=== PATIENT | female | born 1960 | race Two or more races ===

== ENCOUNTER 2022-07-12 17:20 | Inpatient (IN) | payer MEDICARE, BC ==
[~2022-07-12] VITALS: Ht 165.1 cm; Wt 54.4 kg
[2022-07-12] MEDS ORDERED: LORAZEPAM 2 MG/1 ML VIAL IV ONE (18:00)
[2022-07-12] MEDS ORDERED: LORAZEPAM 2 MG/1 ML VIAL ONE (18:04)
[2022-07-12 18:41] LABS: HEMATOCRIT 28.2 % (31.2-41.9); MEAN CORPUSCULAR HEMOGLOBIN 29.4 uug (24.7-32.8); PLATELET COUNT (AUTO) 414 K/uL (179-408)
[2022-07-12] MEDS ORDERED: diphenhydrAMINE 50 MG/1 ML VIAL IV ONE (18:45)
[2022-07-12 18:52] LABS: CARBON DIOXIDE 29 mmol/L (21-32); CHLORIDE 107 mmol/L (98-107); GLUCOSE 87 mg/dL (74-106); POTASSIUM 3.9 mmol/L (3.5-5.1); UREA NITROGEN, BLOOD 13 mg/dL (7-18)
[2022-07-12] MEDS ORDERED: diphenhydrAMINE 50 MG/1 ML VIAL ONE (18:53)
[2022-07-12] MEDS ORDERED: LISI20TA30 PO (18:54)
[2022-07-12] MEDS ORDERED: DULO60CA45 PO (18:54)
[2022-07-12] MEDS ORDERED: FAMO-132 PO (18:54)
[2022-07-12] MEDS ORDERED: TRAM50TA2 PO (18:54)
[2022-07-12] MEDS ORDERED: TRAZ-182 PO (18:54)
[2022-07-12] MEDS ORDERED: MONT10TA22 PO (18:54)
[2022-07-12] MEDS ORDERED: BACL10TA PO (18:54)
[2022-07-12] MEDS ORDERED: IRON15TA3 PO (18:54)
[2022-07-12] MEDS ORDERED: GABA-532 PO (18:54)
[2022-07-12] MEDS ORDERED: LEVO50TA PO (18:54)
[2022-07-12] MEDS ORDERED: NIFE-35 PO (18:54)
[2022-07-12] MEDS ORDERED: ASPI81TA31 PO (18:54)
[2022-07-12] MEDS ORDERED: PANT40TA49 PO (18:54)
[2022-07-12 19:00] LABS: ALANINE AMINOTRANSFERASE 22 U/L (14-59); ALKALINE PHOSPHATASE 84 U/L (50-136); ASPARTATE AMINOTRANSFERASE 22 U/L (15-37); BILIRUBIN,DIRECT 0.1 mg/dL (0.0-0.2); BILIRUBIN,TOTAL 0.3 mg/dL (0.2-1.0)
[2022-07-12 19:10] LABS: ETHANOL < 3 MG/DL (0-0)
--- NOTE | 2022-07-12 19:11 | NUR ---
Patient is still for urine & COVID specimens with possible admission. No arm or body tremors seen while patient is resting on gurney with her eyes close, MD and incoming nurse notified.
--- NOTE | 2022-07-12 19:13 | NUR ---
SEEMA from Gina HERRING
--- NOTE | 2022-07-12 20:48 | NUR ---
Per [facility] Manager Migue HERRING, no beds available at the moment. Patient will stay in the ER until a TELE bed is available.
--- NOTE | 2022-07-12 20:48 | NUR ---
Called Telephone Repairer Migue HERRING for bed
[2022-07-12] MEDS ORDERED: MAGNESIUM HYDROXIDE 30 ML LIQUID UDC PO PRN (23:00)
[2022-07-12] MEDS ORDERED: LORAZEPAM 1 MG TABLET PO PRN (23:00)
[2022-07-12] MEDS ORDERED: ONDANSETRON 4 MG/2 ML VIAL IV PRN (23:00)
[2022-07-12] MEDS ORDERED: ACETAMINOPHEN 325 MG TABLET PO PRN (23:00)
[2022-07-12] MEDS ORDERED: REMEDY ESSENTIAL ZINC PASTE 113 GM TP PRN (23:00)
[2022-07-12] MEDS ORDERED: LORAZEPAM 2 MG/1 ML VIAL IV PRN (23:00)
[2022-07-12] MEDS ORDERED: ENOXAPARIN SODIUM 40 MG/0.4 ML DISP.SYRIN SQ SCH (23:00)
[2022-07-12] MEDS ORDERED: ENOXAPARIN SODIUM 40 MG/0.4 ML DISP.SYRIN SQ ONE (23:06)
[2022-07-13 01:13] LABS: *AMPHETAMINE, URINE NEGATIVE (NEGATIVE); *CANNABINOID, URINE NEGATIVE (NEGATIVE); *COCCAINE, URINE NEGATIVE (NEGATIVE); *PHENCYCLIDINE SCREEN,URINE NEGATIVE (NEGATIVE)
--- NOTE | 2022-07-13 03:00 | NUR ---
Patient able to walk to the restroom with assistance
[2022-07-13] MEDS ORDERED: LORAZEPAM 2 MG/1 ML VIAL ONE (04:50)
--- NOTE | 2022-07-13 06:40 | NUR ---
Patient assigned to room 310. Patient will be transfered to TELE after change of shift
--- NOTE | 2022-07-13 07:03 | NUR ---
Endorsed to Benita HERRING
[2022-07-13 08:33] VITALS: BP 139/77
--- NOTE | 2022-07-13 08:50 | NUR ---
Transfer pt to Tele bed 310.
[2022-07-13] MEDS ORDERED: TRAZ-257 PO (08:58)
[2022-07-13] MEDS ORDERED: PANTOPRAZOLE SODIUM 40 MG VIAL IV SCH (09:00)
[2022-07-13] MEDS ORDERED: ASPIRIN 81 MG TAB.CHEW PO SCH (09:00)
[2022-07-13] MEDS ORDERED: FOLIC ACID 1 MG TABLET PO SCH (09:00)
[2022-07-13] MEDS ORDERED: THIAMINE HCL 100 MG TABLET PO SCH (09:00)
[2022-07-13] MEDS ORDERED: MONTELUKAST SODIUM 10 MG TABLET PO SCH (09:30)
[2022-07-13] MEDS ORDERED: LISINOPRIL 20 MG TABLET PO SCH (09:30)
[2022-07-13] MEDS ORDERED: DULOXETINE 60 MG CAPSULE.DR PO SCH (09:30)
[2022-07-13] MEDS ORDERED: LEVOTHYROXINE SODIUM 50 MCG TABLET PO SCH (09:30)
[2022-07-13] MEDS ORDERED: NIFEdipine XL 30 MG TABSR PO SCH (09:30)
[2022-07-13 09:41] LABS: HEMATOCRIT 31.3 % (31.2-41.9); MEAN CORPUSCULAR HEMOGLOBIN 28.9 uug (24.7-32.8); PLATELET COUNT (AUTO) 411 K/uL (179-408)
[2022-07-13 09:56] LABS: CREATININE 0.9 mg/dL (0.6-1.3); PHOSPHOROUS 4.3 mg/dL (2.5-4.9)
[2022-07-13 10:07] LABS: THYROID STIMULATING HORMONE 1.154 mIU/mL (0.358-3.740)
[2022-07-13] MEDS ORDERED: TRAMADOL HCL 50 MG TABLET PO PRN (10:15)
[2022-07-13 10:28] LABS: BILIRUBIN,DIRECT 0.1 mg/dL (0.0-0.2); BILIRUBIN,TOTAL 0.4 mg/dL (0.2-1.0); TOTAL PROTEIN, SERUM 6.9 g/dL (6.4-8.2)
[2022-07-13 11:40] VITALS: BP 137/74
[2022-07-13] MEDS ORDERED: BENZTROPINE MESYLATE 2 MG/2 ML AMPUL IM SCH (13:00)
[2022-07-13 15:50] VITALS: BP 112/69
--- NOTE | 2022-07-13 15:51 | NUR ---
Pt is stable, no pain or distress, ready to go home.
[2022-07-13] MEDS ORDERED: ENOXAPARIN SODIUM 40 MG/0.4 ML DISP.SYRIN SQ SCH (21:00)
== END 2022-07-13 16:00 | disposition home or self-care (01) | DRG 897 ==
LOC: ER 17:21 → TELE3 07-13 08:19
PROVIDERS: ADMIT Nurse Practitioner Acute Care; ATTEND Nurse Practitioner Acute Care
DX: F10.239 Alcohol dependence with withdrawal, unspecified (principal); Y90.0 Blood alcohol level of less than 20 mg/100 ml; F32.A Depression, unspecified; K21.9 Gastro-esophageal reflux disease without esophagitis; Z86.73 Personal history of transient ischemic attack (TIA), and cerebral infarction without residual deficits; Z20.822 Contact with and (suspected) exposure to COVID-19; G25.89 Other specified extrapyramidal and movement disorders; T43.505A Adverse effect of unspecified antipsychotics and neuroleptics, initial encounter; Y92.89 Other specified places as the place of occurrence of the external cause
CPT/HCPCS: 36415; 70450; 71045; 83550; 83735; 84100; 84443; 84481; 84484; 85025; 93005; A4663; C9113; G0378; G0480; J0515; J1200; J1650; J2060

== ENCOUNTER 2024-07-03 21:34 | Inpatient (IN) | payer MEDICARE, BC ==
[~2024-07-03] VITALS: Ht 165.1 cm; Wt 68.7 kg
[~2024-07-03 21:34] MED LIST: ASPI81TA31 PO; BACL10TA PO; DULO60CA45 PO; FAMO-132 PO; GABA-532 PO; IRON15TA3 PO; LEVO50TA PO; LISI20TA30 PO; MONT10TA22 PO; NIFE-35 PO; PANT40TA49 PO; TRAM50TA2 PO; TRAZ-257 PO
[2024-07-03 21:59] LABS: BASOPHILS # (AUTO) 0.1 K/UL (0.0-0.2); BASOPHILS % (AUTO) 1.3 % (0.0-2.0); EOSINOPHILS # (AUTO) 0.2 K/uL (0.0-0.7); EOSINOPHILS % (AUTO) 2.6 % (0.0-7.0); HEMATOCRIT 35.6 % (31.2-41.9); LYMPHOCYTES # (AUTO) 2.1 K/uL (0.8-4.8); LYMPHOCYTES % (AUTO) 31.7 % (20.5-51.5); MEAN CORPUSCULAR HEMOGLOBIN 32.2 uug (24.7-32.8); MEAN CORPUSCULAR HGB CONC 34 g/dL (32.3-35.6); MEAN CORPUSCULAR VOLUME 95.4 fL (75.5-95.3); MONOCYTES # (AUTO) 0.6 K/uL (0.1-1.30); MONOCYTES % (AUTO) 8.7 % (0.0-11.0); NEUTROPHILS # (AUTO) 3.7 K/uL (1.8-8.9); NEUTROPHILS % (AUTO) 55.7 % (38.5-71.5); PLATELET COUNT (AUTO) 430 K/uL (179-408); RED BLOOD CELL COUNT(AUTO) 3.73 MIL/uL (3.63-4.92); RED CELL DISTRIBUTION WIDTH 14.9 % (12.3-17.7); WHITE BLOOD COUNT (AUTO) 6.7 K/uL (3.8-11.8)
[2024-07-03] MEDS ORDERED: SWABABLE VALVE TRANSFER SET EA MC ONE (21:59)
[2024-07-03] MEDS ORDERED: IOHEXOL 350 100 ML INFUS..BTL ONE ×2 (21:59→22:09)
[2024-07-03] MEDS ORDERED: IV NORMAL SALINE 250 ML IV ONE (21:59)
[2024-07-03 22:00] LABS: DIFFERENTIAL COMMENT 1
[2024-07-03 22:14] LABS: CALCIUM 9.4 mg/dL (8.5-10.1); CARBON DIOXIDE 28 mmol/L (21-32); CHLORIDE 102 mmol/L (98-107); GLUCOSE 100 mg/dL (74-106); SODIUM SERUM 138 mmol/L (136-145); UREA NITROGEN, BLOOD 20 mg/dL (7-18)
[2024-07-03 22:17] LABS: ALANINE AMINOTRANSFERASE 20 U/L (14-59); ALBUMIN 3.7 g/dL (3.4-5.0); ALKALINE PHOSPHATASE 92 U/L (50-136); ASPARTATE AMINOTRANSFERASE 26 U/L (15-37); BILIRUBIN,DIRECT 0.1 mg/dL (0.0-0.2); BILIRUBIN,TOTAL 0.3 mg/dL (0.2-1.0); TOTAL PROTEIN, SERUM 7.5 g/dL (6.4-8.2)
[2024-07-03 22:23] LABS: ALANINE AMINOTRANSFERASE 19 U/L (14-59); ALBUMIN 3.6 g/dL (3.4-5.0); ALKALINE PHOSPHATASE 91 U/L (50-136); ASPARTATE AMINOTRANSFERASE 25 U/L (15-37); BILIRUBIN,TOTAL 0.3 mg/dL (0.2-1.0); TOTAL PROTEIN, SERUM 7.5 g/dL (6.4-8.2)
[2024-07-03 22:38] LABS: BILIRUBIN,DIRECT < 0.1 mg/dL (0.0-0.2)
[2024-07-03] MEDS ORDERED: LEVO25TA9 PO (23:00)
[2024-07-03] MEDS ORDERED: LORAZEPAM 2 MG/1 ML VIAL ONE (23:01)
[2024-07-03] MEDS ORDERED: levETIRAcetam 500 MG/5 ML VIAL IV ONE (23:01)
[2024-07-03] MEDS: LORAZEPAM 2 MG/1 ML VIAL IV ONE (23:21)
[2024-07-03] MEDS: levETIRAcetam IV 1,000 MG in IV DEXTROSE 5% 100 ML IV ONE (23:21)
[2024-07-04] MEDS ORDERED: LORAZEPAM 0.5 MG TABLET PO PRN
[2024-07-04] MEDS ORDERED: ONDANSETRON 4 MG/2 ML VIAL IV PRN
[2024-07-04] MEDS ORDERED: MAGNESIUM HYDROXIDE 30 ML LIQUID UDC PO PRN
[2024-07-04] MEDS ORDERED: GABAPENTIN 100 MG CAPSULE PO PRN
[2024-07-04 00:23] LABS: ETHANOL < 3 MG/DL (0-10)
[2024-07-04] MEDS ORDERED: GABAPENTIN 300 MG CAPSULE PO PRN (05:15)
[2024-07-04] MEDS ORDERED: LEVOTHYROXINE SODIUM 25 MCG TABLET PO SCH ×2 (07:00→09:00)
[2024-07-04 08:18] LABS: BASOPHILS # (AUTO) 0.1 K/UL (0.0-0.2); BASOPHILS % (AUTO) 1.4 % (0.0-2.0); EOSINOPHILS # (AUTO) 0.1 K/uL (0.0-0.7); HEMATOCRIT 37.9 % (31.2-41.9); HEMOGLOBIN 12.5 g/dL (10.9-14.3); LYMPHOCYTES % (AUTO) 22.1 % (20.5-51.5); MEAN CORPUSCULAR HEMOGLOBIN 31.5 uug (24.7-32.8); MEAN CORPUSCULAR HGB CONC 33 g/dL (32.3-35.6); MEAN CORPUSCULAR VOLUME 95.4 fL (75.5-95.3); MONOCYTES # (AUTO) 0.4 K/uL (0.1-1.30); MONOCYTES % (AUTO) 9.7 % (0.0-11.0); NEUTROPHILS # (AUTO) 2.8 K/uL (1.8-8.9); NEUTROPHILS % (AUTO) 63.8 % (38.5-71.5); PLATELET COUNT (AUTO) 478 K/uL (179-408); RED BLOOD CELL COUNT(AUTO) 3.97 MIL/uL (3.63-4.92); RED CELL DISTRIBUTION WIDTH 15.3 % (12.3-17.7); WHITE BLOOD COUNT (AUTO) 4.4 K/uL (3.8-11.8)
[2024-07-04 08:29] LABS: DIFFERENTIAL COMMENT 1
[2024-07-04 08:45] LABS: THYROID STIMULATING HORMONE 3.606 mIU/mL (0.358-3.740)
[2024-07-04 08:48] VITALS: BP 187/85; TEMP 98.5; O2SAT 95
[2024-07-04] MEDS: levETIRAcetam IV 1,000 MG in IV DEXTROSE 5% 100 ML IV SCH (09:00)
[2024-07-04] MEDS: FAMOTIDINE 20 MG TABLET PO SCH (09:00)
[2024-07-04] MEDS ORDERED: ASPIRIN 81 MG TAB.CHEW PO SCH (09:00)
[2024-07-04] MEDS ORDERED: IRON CARBONYL 45 MG PO SCH (09:00)
[2024-07-04] MEDS: LISINOPRIL 20 MG TABLET PO SCH (09:00)
[2024-07-04] MEDS: NIFEdipine XL 30 MG TABSR PO SCH (09:00)
[2024-07-04] MEDS: ASPIRIN EC 81 MG TABLET.DR PO SCH (09:00)
[2024-07-04] MEDS: DULOXETINE 60 MG CAPSULE.DR PO SCH (09:00)
[2024-07-04] MEDS ORDERED: LEVO50TA8 PO (09:12)
[2024-07-04] MEDS ORDERED: MIRT-73 PO (09:25)
[2024-07-04] MEDS ORDERED: PRAZ1CAP5 PO (09:25)
[2024-07-04] MEDS ORDERED: TRAZ-182 PO (09:25)
[2024-07-04 09:37] LABS: ALBUMIN 3.5 g/dL (3.4-5.0); BILIRUBIN,TOTAL 0.3 mg/dL (0.2-1.0); CALCIUM 9.4 mg/dL (8.5-10.1); CREATININE 0.9 mg/dL (0.6-1.3); MAGNESIUM 2.3 mg/dL (1.8-2.4); PHOSPHOROUS 5.1 mg/dL (2.5-4.9); POTASSIUM 4.2 mmol/L (3.5-5.1); TOTAL PROTEIN, SERUM 7.5 g/dL (6.4-8.2)
[2024-07-04 11:49] VITALS: BP 183/90; TEMP 98.8; O2SAT 96
[2024-07-04] MEDS ORDERED: TRAZODONE 100 MG TABLET PO PRN (14:15)
[2024-07-04] MEDS ORDERED: MIRTAZAPINE 15 MG TAB.RAPDIS PO PRN (14:15)
[2024-07-04] MEDS: hydrALAZINE HCL 25 MG TABLET PO PRN (14:23)
[2024-07-04 15:31] VITALS: BP 157/94; TEMP 98.4; O2SAT 97
[2024-07-04] MEDS: MONTELUKAST SODIUM 10 MG TABLET PO SCH (17:09)
[2024-07-04] MEDS: ACETAMINOPHEN 325 MG TABLET PO PRN (17:13)
[2024-07-04 19:35] VITALS: BP 160/97; TEMP 97.5; O2SAT 94
[2024-07-04] MEDS ORDERED: DOCUSATE SODIUM 250 MG CAPSULE PO SCH (21:00)
[2024-07-04] MEDS: DOCUSATE SODIUM 100 MG CAPSULE PO SCH (21:24)
[2024-07-04] MEDS: PRAZOSIN HCL 1 MG CAPSULE PO SCH (21:25)
[2024-07-04] MEDS: TEMAZEPAM 15 MG CAPSULE PO PRN (22:29)
[2024-07-05] VITALS (8 sets, daily range): BP systolic 114–170; BP diastolic 67–93; TEMP 97.3–99.7; O2SAT 95–99
[2024-07-05] MEDS: LORAZEPAM 1 MG TABLET PO PRN (03:05)
[2024-07-05] MEDS: LEVOTHYROXINE SODIUM 50 MCG TABLET PO SCH (06:59)
[2024-07-05] MEDS ORDERED: CLONIDINE HCL 0.1 MG TABLET PO PRN (12:15)
[2024-07-05] MEDS: NIFEdipine XL 30 MG TABSR PO ONE (16:39)
[2024-07-06 07:05] LABS: BASOPHILS % (AUTO) 0.8 % (0.0-2.0); EOSINOPHILS # (AUTO) 0.1 K/uL (0.0-0.7); EOSINOPHILS % (AUTO) 1.6 % (0.0-7.0); LYMPHOCYTES # (AUTO) 1.2 K/uL (0.8-4.8); LYMPHOCYTES % (AUTO) 20.5 % (20.5-51.5); MEAN CORPUSCULAR HEMOGLOBIN 32.1 uug (24.7-32.8); MEAN CORPUSCULAR HGB CONC 34 g/dL (32.3-35.6); MEAN CORPUSCULAR VOLUME 93.9 fL (75.5-95.3); MONOCYTES # (AUTO) 0.5 K/uL (0.1-1.30); MONOCYTES % (AUTO) 8.4 % (0.0-11.0); NEUTROPHILS % (AUTO) 68.7 % (38.5-71.5); PLATELET COUNT (AUTO) 491 K/uL (179-408); RED BLOOD CELL COUNT(AUTO) 3.73 MIL/uL (3.63-4.92); RED CELL DISTRIBUTION WIDTH 15.2 % (12.3-17.7); WHITE BLOOD COUNT (AUTO) 5.9 K/uL (3.8-11.8)
[2024-07-06 07:18] LABS: CALCIUM 9.2 mg/dL (8.5-10.1); CREATININE 0.9 mg/dL (0.6-1.3); MAGNESIUM 2.2 mg/dL (1.8-2.4); PHOSPHOROUS 4.4 mg/dL (2.5-4.9); POTASSIUM 4.1 mmol/L (3.5-5.1)
[2024-07-06 07:40] LABS: DIFFERENTIAL COMMENT 1
[2024-07-06 08:21] VITALS: BP 143/86; TEMP 98.2; O2SAT 98
[2024-07-06] MEDS: NIFEdipine XL 60 MG TABSR PO SCH (08:38)
[2024-07-06 12:01] VITALS: BP 159/89; TEMP 98.8; O2SAT 96
[2024-07-06 13:00] VITALS: BP 145/78; TEMP 98.8; O2SAT 96
[2024-07-06] MEDS ORDERED: LEVE500T9 PO (13:42)
[2024-07-06] MEDS ORDERED: NIFE-34 PO (13:42)
[2024-07-06] MEDS ORDERED: ASPI-618 PO (13:42)
[2024-07-06] MEDS ORDERED: levETIRAcetam 500 MG TABLET PO SCH (21:00)
== END 2024-07-06 15:35 | disposition other institution (70) | DRG 101 ==
LOC: ER 21:58 → TRANSITION 23:05 → TELE3 07-04 08:11
PROVIDERS: ADMIT Internal Medicine; ATTEND Student in an Organized Health Care Education/Training Program
PROC: 05HB33Z Insertion of Infusion Device into Right Basilic Vein, Percutaneous Approach (ICD-10-PCS; principal; 2024-07-04)
DX: R56.9 Unspecified convulsions (principal); K51.90 Ulcerative colitis, unspecified, without complications; F44.5 Conversion disorder with seizures or convulsions; G25.3 Myoclonus; R26.81 Unsteadiness on feet; R42 Dizziness and giddiness; F10.11 Alcohol abuse, in remission; E03.9 Hypothyroidism, unspecified; S42.302D Unspecified fracture of shaft of humerus, left arm, subsequent encounter for fracture with routine healing; W19.XXXD Unspecified fall, subsequent encounter; K21.9 Gastro-esophageal reflux disease without esophagitis; J44.9 Chronic obstructive pulmonary disease, unspecified; Z86.73 Personal history of transient ischemic attack (TIA), and cerebral infarction without residual deficits; M54.50 Low back pain, unspecified; F32.A Depression, unspecified; I50.9 Heart failure, unspecified; Z79.82 Long term (current) use of aspirin; Z79.899 Other long term (current) drug therapy; Z91.81 History of falling
CPT/HCPCS: 36415; 70450; 70496; 71045; 83735; 84100; 84443; 84484; 85025; 85730; A4606; A4663; G0378; G0480; J1953; J2060; Q9967